=== PATIENT | male | born 1980 | race Native Hawaiian/Other Pacific Islander ===

== ENCOUNTER → 2018-04-19 | Outpatient (REF) ==
[2018-04-19 12:33] LABS: CRYSTALS, BODY FLUID NONE SEEN (NONE SEEN); SOURCE, BODY FLUID CRYSTALS RT KNEE
[2018-04-19 12:36] LABS: APPEARANCE, BODY FLUID CLOUDY (CLEAR); BF MONONUCLEAR CELL % 94.8 % (0-0); BF POLYMORPHONUCLEAR CELL % 5.2 % (0-0); RBC BODY FLUID 17 10^3/uL (<2); SOURCE, BODY FLUID RT KNEE; SYNOVIAL FLUID COLOR AMBER (YELLOW); WBC BODY FLUID 291 /uL (0-10)
[2018-04-19 12:37] LABS: BF DIFF IF INDICATED? YES (NO)
== END ==
LOC: M LAB REF 12:23
DX: Z00.00 Encounter for general adult medical examination without abnormal findings (principal)

== ENCOUNTER 2018-05-30 07:08 | Day surgery (SDC) | payer OTHER ==
[2018-05-30] MEDS ORDERED: LR 1,000 ML IV ×3 (07:30→10:15)
[2018-05-30] MEDS ORDERED: ONDANSETRON 4MG/2ML VIAL (J2405) As Ordered (08:11)
[2018-05-30] MEDS ORDERED: PROPOFOL 200 MG/20 ML VIAL As Ordered (08:11)
[2018-05-30] MEDS ORDERED: fentaNYL 100 MCG/2 ML INJECTION (J3010) As Ordered (08:12)
[2018-05-30] MEDS: LIDOCAINE W/EPINEPHRINE 1% 20ML VIAL As Ordered (09:15)
[2018-05-30] MEDS ORDERED: dexameTHASONE 4 MG/ML 1ML VIAL (J1100) As Ordered (09:26)
[2018-05-30] MEDS ORDERED: LIDOCAINE 2% INJ 100 MG/5 ML SDV (FOR ANES.) As Ordered (09:26)
[2018-05-30] MEDS ORDERED: MIDAZOLAM INJ 2 MG/2 ML VIAL (J2250) As Ordered (09:26)
[2018-05-30] MEDS ORDERED: KETOROLAC 60 MG/2 ML VIAL (J1885) As Ordered (09:34)
[2018-05-30] MEDS: MUPIROCIN 2% OINT 22 GM TUBE As Ordered (09:41)
[2018-05-30] MEDS: BACITRACIN OINT 30GM As Ordered (09:42)
[2018-05-30] MEDS ORDERED: ACETAMINOPH W/CODEINE #3 TAB UD PO (10:15)
[2018-05-30] MEDS ORDERED: ONDANSETRON 4MG/2ML VIAL (J2405) IV (10:15)
[2018-05-30] MEDS: fentaNYL 100 MCG/2 ML INJECTION (J3010) IV ×4 (10:23→10:38)
[2018-05-30] MEDS: PERCOCET 5MG/325MG TAB PO ×2 (10:26→10:56)
== END 2018-05-30 11:34 | disposition home or self-care (01) ==
LOC: M SDC 07:08
DX: Q18.1 Preauricular sinus and cyst (principal); G47.30 Sleep apnea, unspecified; Z79.899 Other long term (current) drug therapy
CPT/HCPCS: 42815

== ENCOUNTER → 2018-10-15 | Outpatient (CLI) | payer OTHER ==
[~2018-10-15] MED LIST: VIST25CA PO; ZOLO100T PO
--- NOTE | 2018-10-17 16:22 | SLEEPCENT ---
DATE OF PROCEDURE: 10/15/2018 ORDERED BY: Karin Albarran Nocturnal polysomnography was performed for the titration of pressure therapy in this patient with obstructive sleep apnea syndrome. For testing, the patient was fit with a [employer]Med Quattro full face mask of medium size, 6 cm of water pressure was initially applied to the circuit and the lights were extinguished. 7 hours and 26 minutes of data were reviewed. There were 421 minutes of sleep identified. Sleep latency was normal at 5.5 minutes. Rapid eye movement (REM) latency was normal at 91 minutes. Sleep architecture was good with four REM cycles noted. Overall sleep efficiency was 95.6%. The patient's electrocardiogram showed a sinus rhythm with an average heart rate of 62 beats per minute. EEG showed normal waveforms for awake and sleep. Respiratory events were fully palliated with continuous positive airway pressure (CPAP) at a pressure of +7. Remaining measures of sleep physiology were normal. IMPRESSION: Obstructive sleep apnea syndrome (G47.33). RECOMMENDATIONS: Nightly use of pressure therapy 7 cm of water.
== END ==
LOC: M SLEEP 19:04
PROVIDERS: ATTEND Nurse Practitioner Family
DX: G47.33 Obstructive sleep apnea (adult) (pediatric) (principal)

== ENCOUNTER 2019-07-15 06:15 | Emergency (ER) | payer OTHER ==
[~2019-07-15] VITALS: Ht 180.3 cm; Wt 118.2 kg
[2019-07-15] MEDS ORDERED: PRAZ2CAP PO (06:27)
[2019-07-15] MEDS ORDERED: VOLT1GEL15 TOP (06:27)
[2019-07-15] MEDS ORDERED: FLUO20CA19 PO (06:27)
[2019-07-15] MEDS ORDERED: HYDR-3363 PO (06:27)
[2019-07-15] MEDS ORDERED: QUET1TAB7 PO (06:27)
[2019-07-15] MEDS ORDERED: BUPR150T3 PO (06:27)
[2019-07-15] MEDS ORDERED: OMEP-218 PO (06:27)
[2019-07-15] MEDS ORDERED: KEFL500C17 PO (08:40)
[2019-07-15] MEDS ORDERED: CEPHALEXIN 500 MG CAP PO ONE (08:45)
[2019-07-15 09:02] VITALS: BP 126/72
== END 2019-07-15 09:04 | disposition home or self-care (01) ==
LOC: M ED 06:15
DX: S61.412A Laceration without foreign body of left hand, initial encounter (principal); S51.812A Laceration without foreign body of left forearm, initial encounter; S50.11XA Contusion of right forearm, initial encounter; X99.1XXA Assault by knife, initial encounter; Y04.1XXA Assault by human bite, initial encounter; Y07.9 Unspecified perpetrator of maltreatment and neglect; Z79.899 Other long term (current) drug therapy

== ENCOUNTER 2020-05-13 20:20 | Emergency (ER) | payer OTHER ==
[~2020-05-13] VITALS: Ht 180.3 cm; Wt 118.3 kg
[2020-05-13 20:20] VITALS: BP 140/87
[~2020-05-13 20:20] MED LIST changes: +BUPR150T3 PO; +FLUO20CA22 PO; +HYDR-3363 PO; +KEFL500C17 PO; +OMEP-218 PO; +PRAZ2CAP PO; +QUET1TAB7 PO; +VOLT1GEL15 TOP
[2020-05-13] MEDS ORDERED: SILD100T (20:30)
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
[2020-05-13] MEDS ORDERED: NAPR-837 PO (22:22)
[2020-05-13] MEDS ORDERED: ROBA750T4 PO (22:23)
[2020-05-13] MEDS ORDERED: ASPE4PAD2 TOP (22:23)
[2020-05-13] MEDS ORDERED: LIDOCAINE 5% (LIDODERM) PATCH TD ONE (22:30)
[2020-05-13] MEDS ORDERED: KETOROLAC 60MG 2ML VIAL IM ONE (22:30)
[2020-05-13] MEDS ORDERED: diazePAM 10 MG TAB PO ONE (22:30)
[2020-05-14] MEDS ORDERED: **NOTE PATIENT COMMENT** MISC XX SCH (21:00)
== END 2020-05-13 22:50 | disposition home or self-care (01) ==
LOC: M ED 20:20
DX: S29.012A Strain of muscle and tendon of back wall of thorax, initial encounter (principal); V49.49XA Driver injured in collision with other motor vehicles in traffic accident, initial encounter; Y92.89 Other specified places as the place of occurrence of the external cause; K21.9 Gastro-esophageal reflux disease without esophagitis; Z79.899 Other long term (current) drug therapy
CPT/HCPCS: 72128; 72131; 96372; 99283; J1885